=== PATIENT | male | born 1960 ===

== ENCOUNTER → 2016-08-19 | Day surgery (SDC) | payer BC ==
[~2016-08-19] VITALS: Ht 180.3 cm; Wt 79.4 kg
[2016-08-19] VITALS (12 sets, daily range): BP systolic 126–165; BP diastolic 76–96
[~2016-08-19] MED LIST: ALLOPURINOL300 M1 ORAL; AMBIEN10 M1 ORAL; ASPIRIN81 MG ORAL; ATORVASTATIN CA20 MG ORAL; Bupivacaine w/Epi 0.5% 30ml Vial INJ ONE; COLCHICINE0.6 M1 PO; Dexamethasone 4mg/ml vial ONE; EPINEPHrine 1mg/1ml Amp ONE; Glycopyrrolate 0.2mg/ml 1ml Vial ONE; Hydromorphone 0.5mg/0.5ml inj IVP PRN; LOVAZA1 GM ORAL; Midazolam 2mg/2ml Inj ONE; Morphine Sulfate 2mg/ml Inj IVP PRN; NS Irrig 4000ml IRRIG ONE; Neostigmine 1mg/ml 10ml Inj ONE; Norco 5mg/325mg tab ORAL PRN; PROPECIA1 MG PO; PROSCAR5 MG ORAL; Propofol 10mg/ml 20ml IV ONE; Ropivacaine 5mg/ml Vial 20ml INJ ONE; SIMVASTATIN40 MG ORAL; Succinylcholine 20mg/ml 10ml vial ONE; TRICOR145 MG ORAL; VALACYCLOVIR500 MG ORAL; Zemuron 50mg/5ml Inj IV ONE; ceFAZolin 1gm/50ml Premix 50 ML IV ONE; celeBREX 200mg Cap **SURGERY PATIENTS ONLY ORAL ONE; fentaNYL 100 mcg/2 mL IV ONE; oxyCONTIN 20mg tab ORAL ONE
--- NOTE | 2016-08-19 07:16 | Pre-Procedure Note/Attestation ---
Pre-Procedure Note/Attestation Complete Prior to Procedure Planned Procedure: right Procedure Narrative: shoulder arthroscopy slap repair, sad Indications for Procedure Pre-Operative Diagnosis: right shoulder slap tear, impingement Attestation I attest that I discussed the nature of the procedure; its benefits; risks and complications; and alternatives (and the risks and benefits of such alternatives ), prior to the procedure, with the patient (or the patient's legal hospital insurance representative). I attest that, if there was a reasonable possibility of needing a blood transfusion, the patient (or the patient's legal hospital insurance representative) was given the [facility] standardized written summary, pursuant to the Henrry Hector Blood Safety Act ([place] Health and Safety Code # 1645, as amended). I attest that I re-evaluated the patient just prior to the surgery and that there has been no change in the patient's H&P, except as documented below: KALYANI CHU Aug 19, 2016 07:16
--- NOTE | 2016-08-19 07:17 | Operative Note - PDOC ---
Operative Note Operative Note Pre-op Diagnosis: right shoulder slap tear, impingement Procedure: right shoulder arthoscopy, slap repair, sad Post-op Diagnosis: same as pre-op plus Operative Findings: consistent w/pre-op dx studies Anesthesia: MAC Specimen: none Complications: none Condition: stable Estimated Blood Loss: none Implant(s) used?: Yes KALYANI CHU Aug 19, 2016 07:17
--- NOTE | 2016-08-19 08:40 | Anethesia Preoperative Eval ---
Anesthesia Pre-op PMH/ROS General Date of Evaluation: Aug 19, 2016 Time of Evaluation: 07:30 Anesthesiologist: STEVEN ASA Score: ASA 2 Mallampati Score Class I : Soft palate, uvula, fauces, pillars visible Class II: Soft palate, uvula, fauces visible Class III: Soft palate, base of uvula visible Class IV: Only hard plate visible Mallampati Classification: Class II Surgeon: VLAD Diagnosis: SLAP TEAR R SHOULDER Surgical Procedure: ARTHROSCOPIC REPAIR Anesthesia History: none Family History: no anesthesia problems Allergies: Coded Allergies: No Known Allergies (Unverified , 08/18/16) Medications: see eMAR Past Medical History Cardiovascular: Denies: CAD, HTN, NC, arrhythmia, other, valve dz Pulmonary: Denies: COPD, GADIEL, asthma, other Gastrointestinal/Genitourinary: Denies: CRI, ESRD, GERD, other Neurologic/Psychiatric: Denies: CVA, TIA, dementia, depression/anxiety, other HEENT: Denies: [place] (L), [place] (R), cataract (L), cataract (R), glaucoma, other Hematology/Immune: Denies: DVT, anemia, bleeding disorder, other PMH Narrative: HYPERLIPIDEMA Anesthesia Pre-op Phys. Exam Physician Exam Last Vital Signs Date Time Temp Pulse Resp B/P Pulse Ox O2 Delivery O2 Flow Rate FiO2 08/19/16 07:23 97.7 61 18 132/96 99 Room Air Constitutional: NAD Neurologic: CN 2-12 intact Cardiovascular: RRR Respiratory: CTA Gastrointestinal: S/NT/ND Airway Exam Mallampati Score: Class II MO: full ROM: full Teeth: intact Dentures: no lower, no upper Anesthesia Pre-op A/P Risk Assessment & Plan Assessment: ASA 2 Plan: GET WITH INTERSCALENE BLOCK FOR POST OP PAIN Status Change Before Surgery: No Pre-Antibiotics Drug: ANCEF Given Within 1 Hr of Incision: Yes Time Given: 08:15 BRODERICK HARRIS M.D. Aug 19, 2016 08:40
--- NOTE | 2016-08-19 08:42 | Immediate Post-Op Evaluation ---
Immediate Post-Op Evalulation Immediate Post-Op Evalulation Procedure: ARTHROSCOPIC REPAIR SHOULDER R Date of Evaluation: Aug 19, 2016 Time of Evaluation: 09:05 IV Fluids: 800 Blood Products: 0 Estimated Blood Loss: 0 Urinary Output: 0 Blood Pressure Systolic: 159 Blood Pressure Diastolic: 88 Pulse Rate: 63 Respiratory Rate: 14 O2 Sat by Pulse Oximetry: 100 Temperature (Fahrenheit): 97 Pain Score (1-10): 1 Nausea: No Vomiting: No Complications O Patient Status: awake, patent, extubated, none Hydration Status: adequate Drug: ANCEF Given Within 1 Hr of Incision: Yes Time Given: 08:15 BRODERICK HARRIS M.D. Aug 19, 2016 08:42
--- NOTE | 2016-08-19 08:43 | 48 Hour Post Anesthesia Eval ---
Post Anesthesia Evaluation Procedure: ARTHROSCOPIC REPAIR SHOULDER R Date of Evaluation: Aug 19, 2016 Time of Evaluation: 10:50 Blood Pressure Systolic: 165 0: 80 Pulse Rate: 55 Respiratory Rate: 12 Temperature (Fahrenheit): 98 O2 Sat by Pulse Oximetry: 100 Airway: patent Nausea: No Vomiting: No Pain Intensity: 1 Hydration Status: adequate Mental Status/LOC: patient returned to baseline Post-Anesthesia Complications: O Follow-up care needed: ready to discharge BRODERICK HARRIS M.D. Aug 19, 2016 08:43
--- NOTE | 2016-08-19 19:48 | Operative Note - Dictated ---
DATE OF OPERATION: 08/19/2016 PREOPERATIVE DIAGNOSES: 1. Right shoulder superior labrum anterior and posterior tear 2. Right shoulder chondral damage. 3. Impingement syndrome. POSTOPERATIVE DIAGNOSES: 1. Type 2 superior anterior labral tear. 2. Grade 4 chondral damage, posterior humeral head. 3. Intra-articular loose bodies. 4. Subacromial impingement syndrome. 5. Acromioclavicular joint arthropathy. PROCEDURES: 1. Right shoulder extensive intra-articular debridement. 2. Removal of intra-articular loose body, right shoulder. 3. Right shoulder subacromial decompression with release of the coracoacromial ligament. 4. AC joint coplaning. SURGERY: Cosme Clayton M.D. ANESTHESIA: Interscalene with general. INDICATION FOR PROCEDURE: The patient is a 56-year-old gentleman who has had a shoulder injury after a skiing accident. He had an MRI, which showed a possible SLAP tear with minimal subchondral damage. He had continued pain and elected to undergo operative intervention after failing conservative treatment. The risks, limitations, expectations, and complications of the procedure were discussed in detail. All questions were addressed. DESCRIPTION OF PROCEDURE: An informed consent was obtained. The patient was taken to operative room and placed supine under interscalene general anesthesia. The patient was then carefully placed in a beach-chair position. Ancef was administered. Time-out was performed. Portal sites were injected with 0.25% Marcaine with epinephrine. A posterolateral stab incision was then made. A trocar was introduced into the glenohumeral joint. There was some fraying of the anterior labrum as well as superior labrum, some erythema along the superior labrum. Biceps tendon appeared to be intact. The undersurface of the rotator cuff had some partial fraying, but no gross detachment. There were intra-articular loose bodies floating around. There was significant grade 4 chondral damage in posterior one half that measured approximately the size of a nickel. Anterior medial working portal was established. Extensive intra-articular debridement of the anterior labrum was performed. Once that was done, the labrum was probed. There was not any gross instability, required fixation. There was no tenosynovitis along the biceps tendon or gross subluxation of the biceps tendon. Therefore, a formal biceps tenodesis was not recommended. Chondroplasty of humeral head and glenoid surface was performed. Intraarticular loose body was then removed using a grasper. At this point, the camera was repositioned in the subacromial space. There was hypertrophic bursal tissue. Lateral working portal was established. The undersurface of the acromion was identified. The CA ligament was released. Acromioplasty was started from lateral to medial and completed from posterior to anterior. Once that was completed, the undersurface of the AC joint has a significant bone spur. AC joint coplaning was performed. Once the decompression of AC joint and subacromial spur was performed, bursectomy was completed. The bursal side of the rotator cuff was evaluated and noted to be intact. There was some tendinosis along its insertion along the infraspinatus tendon as well as supraspinatus tendon, but no mikey tear. At this point, the camera was removed. Portal sites were closed with 3-0 Monocryl sutures. Steri-Strips and a sterile dressing were applied. The patient was awoken and taken to recovery room with stable vital signs. ESTIMATED BLOOD LOSS: Minimal. COMPLICATIONS: None. SPECIMENS: None. IMPLANTS: None. Cosme Clayton M.D. DR: BIGG JOB#: [id number] CC:
== END | disposition home or self-care (01) ==
LOC: SUR 06:42
DX: S43.431A Superior glenoid labrum lesion of right shoulder, initial encounter (principal); M75.41 Impingement syndrome of right shoulder; M24.011 Loose body in right shoulder; M75.81 Other shoulder lesions, right shoulder; M10.9 Gout, unspecified; E78.2 Mixed hyperlipidemia
CPT/HCPCS: 29807; 29819; 29823; J0171; J0330; J0690; J1100; J2250; J2405; J2704; J2710; J2795; J3010; 94003; 94150